=== PATIENT | female | born 1990 ===

== ENCOUNTER 2016-12-10 22:10 | Emergency (ER) | payer MEDICAID, OTHER, SELFPAY ==
[2016-12-10 22:25] VITALS: RESP 18
--- NOTE | 2016-12-11 00:03 | US ---
EXAM: US After First Trimester, Transabdominal CLINICAL HISTORY: 26 years old, female; Pain; Other: Back pain; Gestational age or lmp: 20wks 4 d; ; Additional info: Pt fell, 21 weeks TECHNIQUE: Real-time transabdominal obstetrical ultrasound of the maternal pelvis and a second or third trimester with image documentation. COMPARISON: No relevant prior studies available. FINDINGS: Fetus: Single live intrauterine gestation. Heart rate: heart rate of 147 beats per minute. Presentation: Transverse. Placenta: Anterior placenta. No placenta previa or abruption. Amniotic fluid: Normal. Anatomy: No gross anomaly is appreciated. BIOMETRICS Gestational age by US: Estimated gestational age of 20 weeks 4 days by measurements. EFW: Estimated weight of 376 g. BPD: 4.8 cm, correlating with 20 weeks 3 days. HC: 18.0 cm, correlating with 20 weeks 3 days. AC: 15.9 cm, correlating with 21 weeks 0 days. FL: 3.4 cm, correlating with 20 weeks 4 days. MATERNAL: Uterus: Unremarkable. No myometrial mass. Cervix: No cervical dilatation or effacement. Free fluid: No free fluid. IMPRESSION: 1. Single live intrauterine gestation. 2. Incidental/non-acute findings are described above.
--- NOTE | 2016-12-11 00:12 | C.PDOC ---
History Of Present Illness 26 year old female who is 21 weeks that presents to the ER after she slipped, fell, and landed on her lower back. Patient is able to walk but is complaining of lumbar pain and pressure to the lower suprapubic area. Patient presents pain with walking, sitting, and laying down. Denies weakness, numbness , vaginal bleeding, abdominal pain, or vaginal discharge. - HPI Time Seen by Provider: 12/10/16 22:30 Chief Complaint (Nursing): Trauma History Per: Patient History/Exam Limitations: no limitations Onset/Duration Of Symptoms: Hrs Injury Occurred (Timing): Just Before Arrival Location Of Injury: Anterior: Back Recent travel outside of the [place]: No - Fall Fall:Prior To Injury: Slipped Past Medical History Reviewed: Historical Data, Nursing Documentation, Vital Signs Vital Signs: Last Vital Signs Temp 98.4 F 12/10/16 22:14 Pulse 94 H 12/10/16 22:14 Resp 18 12/10/16 22:14 BP 118/84 12/10/16 22:14 Pulse Ox 99 12/11/16 00:20 - Medical History PMH: No Chronic Diseases Surgical History: No Surg Hx Family History: States: Unknown Family Hx - Social History Hx Alcohol Use: Yes Hx Substance Use: No - Immunization History Hx Tetanus Toxoid Vaccination: No Hx Influenza Vaccination: No Hx Pneumococcal Vaccination: No Review Of Systems Gastrointestinal: Negative for: Abdominal Pain Genitourinary: Negative for: Incontinence, Vaginal Discharge, Vaginal Bleeding Musculoskeletal: Positive for: Back Pain Neurological: Negative for: Weakness, Numbness Physical Exam - Physical Exam Appears: Non-toxic, No Acute Distress Skin: Normal Color, Warm, Dry, No Ecchymosis Head: Atraumatic, Normacephalic Oral Mucosa: Moist Chest: Symmetrical, No Tenderness Cardiovascular: Rhythm Regular, No Murmur Respiratory: Normal Breath Sounds, No Rales, No Rhonchi, No Wheezing Gastrointestinal/Abdominal: Soft, No Tenderness Back: No Vertebral Tenderness, Muscle Spasm (Lumbar) Extremity: Normal ROM (x4), No Tenderness, No Deformity, No Swelling Neurological/Psych: Oriented x3, Normal Speech, Normal Cognition Gait: Steady ED Course And Treatment O2 Sat by Pulse Oximetry: 99 (Room air) Pulse Ox Interpretation: Normal - CT Scan/US Transabdominal US Other Rad Studies (CT/US): Read By Radiologist, Radiology Report Reviewed CT/US Interpretation: EXAM: US After First Trimester, Transabdominal. CLINICAL HISTORY: 26 years old, female; Pain; Other: Back pain ; Gestational age or lmp: 20wks 4 d; ;. Additional info: Pt fell, 21 weeks . TECHNIQUE: Real-time transabdominal obstetrical ultrasound of the maternal pelvis and a second or third. trimester with image documentation. COMPARISON: No relevant prior studies available. FINDINGS: Fetus: Single live intrauterine gestation. Heart rate: heart rate of 147 beats per minute. Presentation: Transverse. Placenta: Anterior placenta. No placenta previa or abruption. Amniotic fluid: Normal. Anatomy: No gross anomaly is appreciated. BIOMETRICS. Gestational age by US: Estimated gestational age of 20 weeks 4 days by measurements. EFW: Estimated weight of 376 g. BPD: 4.8 cm, correlating with 20 weeks 3 days. HC: 18.0 cm, correlating with 20 weeks 3 days. AC: 15.9 cm, correlating with 21 weeks 0 days. FL: 3.4 cm, correlating with 20 weeks 4 days. MATERNAL: Uterus: Unremarkable. No myometrial mass. Cervix: No cervical dilatation or effacement. Free fluid: No free fluid. IMPRESSION: 1. Single live intrauterine gestation. 2. Incidental/non-acute findings are described above. Progress Note: Tylenol administered. Transabdominal US ordered. Disposition Counseled Patient/Family Regarding: Studies Performed, Diagnosis, Need For Followup - Disposition Referrals: Ricco Medellin MD [Medical Doctor] - Disposition: HOME/ ROUTINE Disposition Time: 00:25 Condition: STABLE Additional Instructions: Take Tylenol if needed for pain. Apply ice to the area to reduce swelling. Try a topical rub like Icy Hot to help relieve pain. Instructions: Contusion in Adults (ED) Forms: [facility] (Tai[place]ese) - Clinical Impression Clinical Impression: Back contusion - Scribe Statement The provider has reviewed the documentation as recorded by the Scribe Juan Antonio Jenkins All medical record entries made by the Scribe were at my direction and personally dictated by me. I have reviewed the chart and agree that the record accurately reflects my personal performance of the history, physical exam, medical decision making, and the department course for this patient. I have also personally directed, reviewed, and agree with the discharge instructions and disposition.
[2016-12-11 00:27] VITALS: BP 102/70; PULSE 78; TEMP 98.3
[2016-12-11 00:28] VITALS: O2SAT 99
== END 2016-12-11 00:35 | disposition home or self-care (01) ==
LOC: C.ER 22:10
DX: S30.0XXA Contusion of lower back and pelvis, initial encounter (principal); W01.0XXA Fall on same level from slipping, tripping and stumbling without subsequent striking against object, initial encounter; Y92.9 Unspecified place or not applicable